=== PATIENT | male | born 1985 | race Caucasian/White ===

== ENCOUNTER 2021-05-31 23:49 | Emergency (ER) | payer SELFPAY ==
[~2021-05-31] VITALS: Ht 167.6 cm; Wt 68.0 kg
[2021-06-01] MEDS ORDERED: ACETAMINOPHEN 325MG TABLET PO ONE (00:15)
[2021-06-01] MEDS ORDERED: SODIUM CHLORIDE 0.9% 1,000 ML IV ONE (00:30)
[2021-06-01 00:47] LABS: BASOPHILS % 1.1 % (0.0-2.0); EOSINOPHILS % 0.7 % (0.0-5.0); HEMATOCRIT. 44.9 % (42.0-52.0); HEMOGLOBIN. 15.6 g/dL (14.0-18.0); LYMPHOCYTES % 22.6 % (20.0-50.0); MEAN CORPUSCULAR HEMOGLOBIN 30.8 pg (28.0-32.0); MEAN PLATELET VOLUME 7.9 fl (7.4-10.4); MONOCYTES % 11.3 % (2.0-8.0); NEUTROPHILS % 64.3 % (40.0-76.0); PLATELET 289 x1000/uL (130-400); RED BLOOD CELL COUNT 5.05 mill/uL (4.7-6.1); RED CELL DISTRIBUTION WIDTH 13.4 % (11.6-14.6)
[2021-06-01 00:53] LABS: CHLORIDE 104 mEq/L (98-107)
[2021-06-01 00:58] LABS: ETHANOL BLOOD < 10 mg/dL
[2021-06-01 03:20] VITALS: BP 115/70
== END 2021-06-01 03:30 | disposition home or self-care (01) ==
LOC: ER 23:49
DX: S09.8XXA Other specified injuries of head, initial encounter (principal); R07.2 Precordial pain; E86.0 Dehydration; M54.2 Cervicalgia; W01.0XXA Fall on same level from slipping, tripping and stumbling without subsequent striking against object, initial encounter; W50.0XXA Accidental hit or strike by another person, initial encounter; Y93.89 Activity, other specified; Y92.252 Music hall as the place of occurrence of the external cause
CPT/HCPCS: 36415; 70450; 71045; 72125; 80053; 80320; 85025; 93005; 96360; 99285; J7030; G0480